=== PATIENT | male | born 1995 | race Caucasian/White ===

== ENCOUNTER 2016-10-30 13:03 | Emergency (ER) | payer MEDICAID, OTHER ==
[~2016-10-30] VITALS: Ht 182.9 cm; Wt 71.5 kg
[2016-10-30 13:12] VITALS: Ht 182.9 cm; Wt 71.5 kg
--- NOTE | 2016-10-30 15:23 | RADRPT ---
PROCEDURE: XR Forearm. CLINICAL INDICATION: right wrist pain x 2 week, fell off skateboard TECHNIQUE: AP and lateral views of the right forearm were obtained. COMPARISON: No prior studies are available for comparison. FINDINGS: There is normal mineralization and alignment. No fracture or osseous lesion is identified. The soft tissues are unremarkable. IMPRESSION: Unremarkable right forearm. RPTAT: HRC Physician Kiley Date Time Electronically viewed and signed by Baldev Kruse Physician on 10/30/2016 15:23 /
--- NOTE | 2016-10-30 15:23 | RADRPT ---
PROCEDURE: XR Wrist. CLINICAL INDICATION: right wrist pain x 2 week, fell off skateboard TECHNIQUE: AP, lateral and oblique views of the right wrist were performed. COMPARISON: No prior studies are available for comparison. FINDINGS: No evidence of fracture, dislocation, or subluxation is seen. The bones appear well mineralized. The joint spaces are well preserved. The soft tissues appear intact. IMPRESSION: Unremarkable exam of the right wrist. RPTAT: HRC Physician Kiley Date Time Electronically viewed and signed by Physician Kiley on 10/30/2016 15:23 RC/
--- NOTE | 2016-10-30 15:24 | RADRPT ---
PROCEDURE: XR Hand. CLINICAL INDICATION: right hand pain x 2 week, fell off skateboard TECHNIQUE: AP oblique and lateral views of the right hand were obtained. COMPARISON: No prior studies are available for comparison. FINDINGS: There is normal mineralization. No acute fracture or dislocation is seen. There are no significant degenerative changes. There is no significant soft tissue swelling. IMPRESSION: Unremarkable x-ray of the right hand x-ray . RPTAT: HRC Physician Kiley Date Time Electronically viewed and signed by Physician Kiley on 10/30/2016 15:24 RC/
[2016-10-30] MEDS ORDERED: IBUP-1542 PO (15:40)
--- NOTE | 2016-10-30 15:53 | ERD ---
ER Documentation Chief Complaint Date/Time DATE: 10/30/16 TIME: 15:49 Chief Complaint RIGHT HAND PAIN DUE TO FALL HPI Patient is a 21-year-old male who presents emergency department with concerns of right hand pain after falling off a skateboard 2 weeks ago. Patient states he continues to have pain in the thenar aspect of his right hand. Patient reports taking ibuprofen with minimal alleviation of symptoms. Patient denies any numbness or tingling. Patient denies any previous injuries to the affected extremity. Patient is right-hand dominant. Patient denies any fevers, chills, nausea, vomiting, head injury, loss of consciousness. ROS All systems reviewed and are negative except as per history of present illness. Medications Home Meds Active Scripts Ibuprofen* (Motrin*) 600 Mg Tab, 600 MG PO Q6, #30 TAB Prov:VALERI TOMPKINS PA-C 10/30/16 Physical Exam Vitals Vital Signs Date Time Temp Pulse Resp B/P Pulse Ox O2 Delivery O2 Flow Rate FiO2 10/30/16 13:12 98.5 76 18 131/80 97 Physical Exam GENERAL: Well-developed, well-nourished male. Appears in no acute distress. HEAD: Normocephalic, atraumatic. EYES: Pupils are equally reactive bilaterally. EOMs grossly intact. No conjunctival erythema. ENT: Moist mucous membranes. No uvula deviation. No kissing tonsils. NECK: Supple. No meningismus. Normal range of motion of the neck. LUNGS: Clear to auscultation bilaterally. No rhonchi, wheezing, rales or coarse breath sounds. HEART: Regular rate and rhythm. No murmurs, rubs or gallops. EXTREMITIES: Equal pulses bilaterally. No peripheral clubbing, cyanosis or edema. No unilateral leg swelling. NEUROLOGIC: Alert and oriented. Moving all four extremities without any difficulty. Normal speech. Steady gait. SKIN: Normal color. Warm and dry. No rashes or lesions. RIGHT ARM: No deformity, erythema, ecchymosis. No swelling noted over the thenar aspect of the right hand. Full range of motion of the wrist, elbow. Patient able to supinate and pronate without any difficulty. Tender to palpation on the thenar aspect. Nontender palpation of the wrist, scaphoid bone , forearm, elbow. Sensation intact to light touch. Neurovascularly intact. ( Able to give thumbs up, make an ok sign, cross digits 2 and 3, thumb to pinky opposition. 2+ RP.) No snuffbox tenderness. Procedures/MDM ED COURSE: The patient was stable throughout ED course. I kept the patient and/or family informed of laboratory and diagnostic imaging results throughout the ED course. DIAGNOSTIC IMAGING: Read by radiologist. DIAGNOSTIC IMAGING REPORT Patient: STEPHAN BILLY : 1995 Age: 21 Sex: M MR #: [id number] DOS: 10/30/16 1426 Ordering MD: VALERI TOMPKINS PA-C Location: [facility] Room/Bed: PROCEDURE: XR Forearm. CLINICAL INDICATION: right wrist pain x 2 week, fell off skateboard TECHNIQUE: AP and lateral views of the right forearm were obtained. COMPARISON: No prior studies are available for comparison. FINDINGS: There is normal mineralization and alignment. No fracture or osseous lesion is identified. The soft tissues are unremarkable. IMPRESSION: Unremarkable right forearm. RPTAT: HRC Physician Kiley Date Time Electronically viewed and signed by Baldev Kruse Physician on 10/30/2016 15: 23 RC/ CC: VALERI TOMPKINS PA-C Patient: STEPHAN BILLY : 1995 Age: 21 Sex: M MR #: [id number] DOS: 10/30/16 1426 Ordering MD: VALERI TOMPKINS PA-C Location: [facility] Room/Bed: PROCEDURE: XR Hand. CLINICAL INDICATION: right hand pain x 2 week, fell off skateboard TECHNIQUE: AP oblique and lateral views of the right hand were obtained. COMPARISON: No prior studies are available for comparison. FINDINGS: There is normal mineralization. No acute fracture or dislocation is seen. There are no significant degenerative changes. There is no significant soft tissue swelling. IMPRESSION: Unremarkable x-ray of the right hand x-ray . RPTAT: HRC Physician Kiley Date Time Electronically viewed and signed by Physician Kiley on 10/30/2016 15: 24 RC/ CC: VALERI TOMPKINS PA-C DIAGNOSTIC IMAGING REPORT Patient: STEPHAN BILLY : 1995 Age: 21 Sex: M MR #: [id number] DOS: 10/30/16 1426 Ordering MD: VALERI TOMPKINS PA-C Location: [facility] Room/Bed: PROCEDURE: XR Wrist. CLINICAL INDICATION: right wrist pain x 2 week, fell off skateboard TECHNIQUE: AP, lateral and oblique views of the right wrist were performed. COMPARISON: No prior studies are available for comparison. FINDINGS: No evidence of fracture, dislocation, or subluxation is seen. The bones appear well mineralized. The joint spaces are well preserved. The soft tissues appear intact. IMPRESSION: Unremarkable exam of the right wrist. RPTAT: HRC Physician Kiley Date Time Electronically viewed and signed by Physician Kiley on 10/30/2016 15: 23 RC/ CC: VALERI TOMPKINS PA-C PROCEDURES: SPLINT APPLICATION: The patient was verbally consented at bedside prior to splint application. Patient was explained the risks, benefits and alternatives to this procedure. The patient was neurovascularly intact prior to and status post application of the splint. The patient tolerated the procedure well with no complications. Splint type: Velcro wrist splint Extremity: R hand Indication: wrist sprain MEDICAL DECISION MAKING: This is a 21-year-old male who presents with right hand pain after falling off his skateboard 2 weeks ago. Patient states despite taking ibuprofen his pain continues. Patient is right-hand dominant.. Vital signs were reviewed. Patient was afebrile. Xray imaging of the hand, wrist and forearm are unremarkable for any fractures or dislocations. Patient was placed in Velcro wrist splint for comfort measures. Patient was advised that I am unable to rule out any ligament or tendon injuries at this time. Patient was advised if his pain persists he may need to follow-up with an personal computer specialist and/or obtain an MRI and outpatient basis. This time, patient's presentation is most consistent with wrist sprain. I have a much lower clinical concern for dislocation, carpal fracture, scaphoid fracture, metacarpal fracture, phalanx fracture, Boxer's fracture, mallet finger , trigger finger, jammed finger (swelling at PIP), gout, rheumatoid arthritis, osteoarthritis, finger avulsion injury, fingertip laceration, osteomyelitis or compartment syndrome. PRESCRIPTIONS: Ibuprofen DISCHARGE: At this time, patient is stable for discharge and outpatient management. Patient was given a copy of all imaging studies obtained today. RICE therapy and ROM exercises were advised to avoid stiffness. I have instructed the patient to follow-up with his/her primary care physician in 1-2 days. I have discussed with the patient the possibility of needing to see an personal computer specialist for further workup and imaging if the pain persists. I have instructed the patient to promptly return to the ER for any new or worsening symptoms including increased pain, swelling, redness, warmth or fever. The patient and/or family expressed understanding of and agreement with this plan. All questions were answered. Home care instructions were provided. Disclaimer: Inadvertent spelling and grammatical errors are likely due to EHR/ dictation software use and do not reflect on the overall quality of patient care. Also, please note that the electronic time recorded on this note does not necessarily reflect the actual time of the patient encounter. Departure Diagnosis: Primary Impression: Wrist pain, right Condition: Stable Patient Instructions: Wrist Sprain Referrals: COMMUNITY CLINICS YOU HAVE RECEIVED A MEDICAL SCREENING EXAM AND THE RESULTS INDICATE THAT YOU DO NOT HAVE A CONDITION THAT REQUIRES URGENT TREATMENT IN THE EMERGENCY DEPARTMENT. FURTHER EVALUATION AND TREATMENT OF YOUR CONDITION CAN WAIT UNTIL YOU ARE SEEN IN YOUR DOCTORS OFFICE WITHIN THE NEXT 1-2 DAYS. IT IS YOUR RESPONSIBILITY TO MAKE AN APPOINTMENT FOR FOLOW-UP CARE. IF YOU HAVE A PRIMARY DOCTOR --you should call your primary doctor and schedule an appointment IF YOU DO NOT HAVE A PRIMARY DOCTOR YOU CAN CALL OUR PHYSICIAN REFERRAL HOTLINE AT IF YOU CAN NOT AFFORD TO SEE A PHYSICIAN YOU CAN CHOSE FROM THE FOLLOWING [facility] [address] [facility] [address] [place] [facility] [address] [facility] [address] [facility] [address] [facility] [facility] [address] [facility]. [facility] YOU HAVE RECEIVED A MEDICAL SCREENING EXAM AND THE RESULTS INDICATE THAT YOU DO NOT HAVE A CONDITION THAT REQUIRES URGENT TREATMENT IN THE EMERGENCY DEPARTMENT. FURTHER EVALUATION AND TREATMENT OF YOUR CONDITION CAN WAIT UNTIL YOU ARE SEEN IN YOUR DOCTORS OFFICE WITHIN THE NEXT 1-2 DAYS. IT IS YOUR RESPONSIBILITY TO MAKE AN APPOINTMENT FOR FOLOW-UP CARE. IF YOU HAVE A PRIMARY DOCTOR --you should call your primary doctor and schedule and appointment IF YOU DO NOT HAVE A PRIMARY DOCTOR YOU CAN CALL OUR PHYSICIAN REFERRAL HOTLINE AT . IF YOU CAN NOT AFFORD TO SEE A PHYSICIAN YOU CAN CHOSE FROM THE FOLLOWING [facility] INSTITUTIONS: [facility] [address] [place] [address] [facility] [address] [place] [address] [facility] [address] [place] [address] Additional Instructions: Unable to rule out any ligament or tendon injuries. Follow up with personal computer specialist for further management. Call your primary care doctor TOMORROW for an appointment during the next 1-2 days.See the doctor sooner or return here if your condition worsens before your appointment time. VALERI TOMPKINS PA-C Oct 30, 2016 15:53
[2016-10-30 17:11] VITALS: BP 121/65; PULSE 77; RESP 18
== END 2016-10-30 17:21 | disposition home or self-care (01) ==
LOC: FTE 13:03
DX: M25.531 Pain in right wrist (principal)
CPT/HCPCS: 29125; 73090; 73110; 73130; Z7502

== ENCOUNTER 2017-03-19 12:26 | Emergency (ER) | END 2017-03-19 13:20 | disposition home or self-care (01) ==

== ENCOUNTER 2018-10-14 14:32 | Emergency (ER) | payer OTHER ==
[~2018-10-14] VITALS: Ht 182.9 cm; Wt 69.1 kg
[~2018-10-14 14:32] MED LIST: HYDR-4011 PO; IBUP-1542 PO; NAPR-985 PO; PENI500T PO
[2018-10-14 14:42] VITALS: BP 128/90; PULSE 86; RESP 16; Ht 182.9 cm; Wt 69.1 kg
[2018-10-14] MEDS ORDERED: IBUPROFEN 600 MG TAB PO ONE (15:30)
== END 2018-10-14 16:46 | disposition home or self-care (01) ==
LOC: FTE 14:32
DX: S20.212A Contusion of left front wall of thorax, initial encounter (principal); X58.XXXA Exposure to other specified factors, initial encounter; Y92.9 Unspecified place or not applicable
CPT/HCPCS: 71045; 71100